=== PATIENT | male | born 1950 | race Caucasian/White ===

== ENCOUNTER 2017-12-28 00:52 | Inpatient (IN) | payer OTHER ==
[~2017-12-28] VITALS: Ht 182.9 cm; Wt 109.0 kg
[2017-12-28 02:30] LABS: Basophils # (auto) 0.1 uL; Eosinophils # (auto) 0.3 uL; Eosinophils % (auto) 3.9 % (0.0-7.0); Hematocrit 42.4 % (41.0-53.0); Hemoglobin 14.3 g/dL (13.5-17.5); Lymphocytes # (auto) 1.7 uL; Lymphocytes % (auto) 19.6 % (10.0-50.0); Mean Corpuscular Hgb Conc. 33.7 g/dL (32.0-36.0); Monocytes # (auto) 0.7 uL; Monocytes % (auto) 8.5 % (0.0-12.0); Neutrophils # (auto) 5.8 uL; Nucleated Red Blood Cells % 0.1 %; Platelet Count (auto) 189 10^3/uL (140-450); Red Blood Cells 4.47 10^6/uL (4.5-5.90); Red Cell Distribution Width 12.8 % (11.8-14.3); White Blood Cell 8.7 10^3/uL (4.4-10.8)
[2017-12-28 02:48] LABS: Albumin 3.1 g/dL (3.4-5.0); BUN/Creatinine Ratio 15.2; Calcium 7.9 mg/dL (8.5-10.1); Potassium 4.8 mmol/L (3.5-5.1)
[2017-12-28 02:51] LABS: Bilirubin, Total 0.5 mg/dL (0.2-1.0); Total Protein 6.9 g/dL (6.4-8.2)
[2017-12-28 02:56] LABS: INR 1.01 (0.9-1.15); Partial Thromboplastin Time 27.8 sec (23.78-33.04); Prothrombin Time 10.8 sec (9.27-12.13)
[2017-12-28] MEDS ORDERED: WARFARIN SODIUM 5 MG TAB PO ONE (03:00)
[2017-12-28] MEDS ORDERED: ENOXAPARIN SOD 100 MG/1 ML SYRINGE SC ONE (03:00)
[2017-12-28 03:56] LABS: Urine WBC None Seen /hpf (0 - 3)
[2017-12-28 04:24] LABS: Alcohol, Urine < 3.0 mg/dL (0-5); Amphetamine Screen, Urine NEGATIVE (NEGATIVE); Barbiturate Scree,Urine NEGATIVE (NEGATIVE); Benzodiazephine Screen, Urine NEGATIVE (NEGATIVE); Cannabinoid Screen, Urine NEGATIVE (NEGATIVE); Cocaine Screen, Urine NEGATIVE (NEGATIVE); Opiate Scree,Urine NEGATIVE (NEGATIVE); Phencyclidine Screen, Urine NEGATIVE (NEGATIVE)
[2017-12-28 04:31] LABS: Urine Bacteria NONE SEEN /hpf (None Seen); Urine Blood Negative /uL (Negative); Urine Specific Gravity 1.018 (1.001-1.035)
[2017-12-28] MEDS ORDERED: ACETAMINOPHEN 325 MG TAB PO PRN (06:45)
[2017-12-28] MEDS ORDERED: TEMAZEPAM 15 MG CAP PO PRN (06:45)
[2017-12-28] MEDS ORDERED: HYDROcodone-ACET 5/325MG TAB PO PRN (06:45)
[2017-12-28] MEDS ORDERED: ONDANSETRON HCL 4 MG/2 ML VIAL IV PRN (06:45)
[2017-12-28] MEDS: FAMOTIDINE 20 MG TAB PO SCH ×2 (09:29→22:14)
[2017-12-28] MEDS: ENOXAPARIN SOD 100 MG/1 ML SYRINGE SC SCH (12:10)
[2017-12-28 18:15] VITALS: BP 130/73
[2017-12-28 21:44] VITALS: BP 148/83
[2017-12-28] MEDS: APIXABAN 5 MG TAB PO SCH (22:13)
[2017-12-29] MEDS: ENOXAPARIN SOD 100 MG/1 ML SYRINGE SC SCH (00:29)
[2017-12-29 04:49] VITALS: BP 115/61
[2017-12-29 06:37] LABS: Basophils # (auto) 0 uL; Basophils % (auto) 0.6 % (0.0-2.0); Eosinophils # (auto) 0.3 uL; Eosinophils % (auto) 5.2 % (0.0-7.0); Hematocrit 41.2 % (41.0-53.0); Hemoglobin 14.6 g/dL (13.5-17.5); Lymphocytes # (auto) 1.6 uL; Lymphocytes % (auto) 23.3 % (10.0-50.0); Mean Corpuscular Hemoglobin 33.6 pg (28.0-32.0); Mean Corpuscular Hgb Conc. 35.4 g/dL (32.0-36.0); Mean Corpuscular Volume 94.8 fL (80.0-100.0); Monocytes # (auto) 0.6 uL; Neutrophils # (auto) 4.2 uL; Neutrophils % (auto) 61.9 % (37.0-80.0); Nucleated Red Blood Cells % 0.2 %; Platelet Count (auto) 186 10^3/uL (140-450); Red Blood Cells 4.35 10^6/uL (4.5-5.90); White Blood Cell 6.7 10^3/uL (4.4-10.8)
[2017-12-29 08:00] VITALS: BP 125/65
[2017-12-29] MEDS: FAMOTIDINE 20 MG TAB PO SCH (09:50)
[2017-12-29] MEDS: APIXABAN 5 MG TAB PO SCH (09:50)
[2017-12-29 14:47] VITALS: BP 138/78
[2018-01-04] MEDS ORDERED: APIXABAN 5 MG TAB PO SCH (22:00)
== END 2017-12-29 15:30 | disposition home or self-care (01) | DRG 301 ==
LOC: ER 00:52 → OVERFLOW 00:53 → WEST WING 18:08
PROVIDERS: ADMIT Nurse Practitioner; ATTEND Internal Medicine
DX: I82.432 Acute embolism and thrombosis of left popliteal vein (principal); R79.1 Abnormal coagulation profile; E66.9 Obesity, unspecified; Z79.01 Long term (current) use of anticoagulants; Z68.32 Body mass index [BMI] 32.0-32.9, adult
CPT/HCPCS: 36415; 80053; 80307; 81001; 85025; 85379; 85610; 85730; 93971; 94761; 96372